=== PATIENT | male | born 1965 | race Caucasian/White ===

== ENCOUNTER 2021-02-12 10:39 | Emergency (ER) | payer BC, OTHER ==
[~2021-02-12] VITALS: Ht 170.2 cm; Wt 83.9 kg
[2021-02-12 16:06] VITALS: BP 116/76
[2021-02-12] MEDS ORDERED: cefTRIAXone SOD 1,000 MG VL IM ONE (16:30)
[2021-02-12] MEDS ORDERED: CLINDAMYCIN HCL 150 MG CAP PO ONE (16:30)
== END 2021-02-12 17:21 | disposition home or self-care (01) ==
LOC: ER 10:39
DX: S80.861A Insect bite (nonvenomous), right lower leg, initial encounter (principal); S70.261A Insect bite (nonvenomous), right hip, initial encounter; L03.115 Cellulitis of right lower limb; W57.XXXA Bitten or stung by nonvenomous insect and other nonvenomous arthropods, initial encounter; Y93.89 Activity, other specified; Y92.89 Other specified places as the place of occurrence of the external cause; Y99.8 Other external cause status
CPT/HCPCS: 96372; 99283; J0696